=== PATIENT | male | born 1950 | race Caucasian/White ===

== ENCOUNTER 2020-06-09 14:03 | Emergency (ER) | payer MEDICARE, SELFPAY ==
[~2020-06-09] VITALS: Ht 172.7 cm; Wt 60.0 kg
[2020-06-09 14:11] VITALS: BP 142/96
--- NOTE | 2020-06-09 14:17 | NUR ---
REPORT TO SAMIRA MOULTON
[2020-06-09] MEDS ORDERED: AMLODIPINE 5 MG TABLET PO ONE (15:00)
[2020-06-09] MEDS ORDERED: MUPIROCIN CRM 2%, 15GM TP ONE (16:00)
== END 2020-06-09 16:31 | disposition home or self-care (01) ==
LOC: ED 16:25
DX: F43.0 Acute stress reaction (principal); F41.9 Anxiety disorder, unspecified; F17.200 Nicotine dependence, unspecified, uncomplicated
CPT/HCPCS: 99283